=== PATIENT | male | born 1980 | race African-American/Black ===

== ENCOUNTER 2017-01-30 00:59 | Emergency (ER) | payer MEDICAID, OTHER ==
[~2017-01-30 00:59] MED LIST: Z.0.NO CURRENT MEDS
[2017-01-30 01:01] VITALS: BP 135/84; PULSE 65; RESP 16; TEMP 98.4; O2SAT 100
--- NOTE | 2017-01-30 02:17 | PD ---
HPI Chief Complaint: Injury Time Seen by Provider: 02:15 Travel History International Travel<30 days: No Contact w/Intl Traveler<30days: No Traveled to known affect area: No History of Present Illness HPI Patient comes in complaining of left lateral ankle pain ongoing for 4 days. Patient states began while after [place] with [place] playing around and doing flips. Patient denies any known direct trauma. Denies any radiation of the pain. Patient has been using [id number] ointments and analgesics minimal to no relief of his pain. Walking makes it worse. Denies any numbness or tingling. PFSH Past Medical History Asthma: Yes Blood Disorders: No Anxiety: No Depression: No Heart Rhythm Problems: No Cancer: No Cardiovascular Problems: No High Cholesterol: No Chemotherapy: No Chest Pain: No Congestive Heart Failure: No COPD: No Diabetes: No Diminished Hearing: No Endocrine: No Genitourinary: No Hypertension: No Immune Disorder: No Neurologic: No Psychiatric: No Reproductive: No Respiratory: No Myocardial Infarction: No Radiation Therapy: No Sleep Apnea: No Thyroid Disease: No Past Surgical History Surgical History: No Previous Surgery Other Surgery: No Social History Alcohol Use: Yes (OCC) Tobacco Use: Yes (2 CIGARS A DAY) Substance Use: No Allergies-Medications (Allergen,Severity, Reaction): Coded Allergies: No Known Allergies (Verified , 01/30/17) Reported Meds & Prescriptions Reported Meds & Active Scripts Active Naprosyn (Naproxen) 500 Mg Tab 500 Mg PO Q12HR PRN Review of Systems Except as stated in HPI: all other systems reviewed are Neg Physical Exam Narrative GENERAL: Well-developed, well nourished, in no acute distress, and non-ill appearing. SKIN: Focused skin assessment warm and dry. HEAD: Atraumatic. Normocephalic. EYES: Pupils equal and round. EOMI. No scleral icterus. No injection or drainage. ENT: No nasal bleeding or discharge. Mucous membranes pink and moist. NECK: Trachea midline. Supple. No nuclear rigidity. CARDIOVASCULAR: Dorsal pulses 2+, intact, and equal bilaterally. Capillary refill less than 2 seconds. RESPIRATORY: No accessory muscle use. No respiratory distress. MUSCULOSKELETAL: No obvious deformities. No clubbing. No cyanosis. No edema. Full range of motion. Ankle: Neagative anterior draw and Cartagena test. Negative Rayshawn's sign. No laxity noted with passive inversion and eversion of BL ankles. Negative squeeze test. Pulses equal BL distal to injury. Capillary refill less than 2 seconds distal to injury and equal BL. Sensation equal BL 1st web space. FROM of toes distal to injury and equal BL. NV intact distal to injury and equal BL. Dorsal pulses equal BL. Patient reports tenderness to palpation lateral aspect of left ankle. Normal gait. NEUROLOGICAL: Awake and alert. No obvious cranial nerve deficits. Motor grossly within normal limits. Normal speech. PSYCHIATRIC: Appropriate mood and affect; insight and judgment normal. Data Data Last Documented VS Vital Signs Date Time Temp Pulse Resp B/P Pulse Ox O2 Delivery O2 Flow Rate FiO2 01/30/17 01:01 98.4 65 16 135/84 100 Orders Ankle, Complete (Pet5ulk) (01/30/17 ) Ice/Cold Pack (01/30/17 02:15) Splint Or Brace Apply/Monitor (01/30/17 02:49) MDM Medical Decision Making Medical Screen Exam Complete: Yes Emergency Medical Condition: Yes Interpretation(s) Ankle x-ray read by the radiologist shows: 1. Diffuse soft tissue swelling over the lateral malleolus. 2. No acute fracture or joint dislocation. 3. Small heel spur. Differential Diagnosis Fracture, sprain, contusion, other Narrative Course There is no clinical evidence for fracture. There is no clinical evidence to suspect bony injury by exam. Radiographic examination revealed no fracture seen at this time. No obvious ligamental injury or internal derangement is noted at this time. The distal extremity appears neurovascularly intact, without evidence of neurovascular injury nor compartment syndrome. Tendon exam also was intact. The effected limb was splinted. The patient was discharged on pain medication along with sprain and splint care instructions and given warnings for vascular compromise. The patient is to follow up with Orthopedics and/or disposal man. The patient agrees with plan. Patient in no obvious distress upon re-evaluation. All pertinent Radiology result(s) discussed with patient. Patient was asked if they wanted to speak to my attending, which the patient did not wish to do at this time. Any questions/ concerns in reference to patient diagnosis/condition discussed and clarified prior to patient's discharge. Reinforced sheer importance of close follow up with patient's primary physician or primary care clinic, orthopedics, and/or disposal man. Instructed patient to return to ED immediately, if symptoms return/ worsen. Pt showed understanding of above instructions. Further instructions and recommendations were detailed in discharge paperwork. Pt ambulated without difficulty out of ED at discharge. Diagnosis Primary Impression: Left ankle sprain Qualified Code: S93.402A - Sprain of left ankle, unspecified ligament, initial encounter Additional Impression: Heel spur Qualified Code: M77.32 - Heel spur, left Patient Instructions: Ankle Sprain (ED), Ankle Sprain Exercises (GEN), Ankle Stirrup Splint (ED), General Instructions, Heel Spur (ED) Additional Instructions: Follow-up with your primary care physician and orthopedics and/or disposal man in 3-5 days for reevaluation. Take all medication as prescribed. Apply ice to affected area 20 minutes per hour as needed for pain. Return to the emergency department if symptoms get worse. Med/Other Pt SpecificInfo: Prescription(s) given Scripts Naproxen (Naprosyn)500 Mg [id number] Mg PO Q12HR PRN (PAIN SCALE 1 TO 10) #14 TAB Ref 0 Prov:Cha Valdez MD 01/30/17 Disposition: 01 DISCHARGE HOME Condition: Stable Francisco Denton Jan 30, 2017 02:17
--- NOTE | 2017-01-30 02:43 | RADRPT ---
EXAM DATE/TIME: 01/30/2017 02:25 [facility] COMPARISON: No previous studies available for comparison. INDICATIONS : Left ankle pain. MEDICAL HISTORY : None. SURGICAL HISTORY : None. ENCOUNTER: Initial ACUITY: 4 - 6 days PAIN SCORE: 5/10 LOCATION: Left ankle. FINDINGS: Three view exam was performed of the left ankle. The bony structures are in normal alignment. No ev idence of fracture, dislocation. There is soft tissue swelling overlying the lateral malleolus. The ankle mortise is intact. No radiopaque foreign bodies are seen. Bony mineralization is normal. Smal l heel spur CONCLUSION: 1. Diffuse soft tissue swelling over the lateral malleolus. 2. No acute fracture or joint dislocation. 3. Small heel spur. Indra Almeida MD on January 30, 2017 at 2:38 Board Certified Radiologist. This report was verified electronically.
[2017-01-30] MEDS ORDERED: NAPR500 PO (02:50)
== END 2017-01-30 03:44 | disposition home or self-care (01) ==
LOC: NEPD 00:59
DX: S93.402A Sprain of unspecified ligament of left ankle, initial encounter (principal); M77.52 Other enthesopathy of left foot and ankle; J45.909 Unspecified asthma, uncomplicated; F17.290 Nicotine dependence, other tobacco product, uncomplicated; Z79.899 Other long term (current) drug therapy; X58.XXXA Exposure to other specified factors, initial encounter
CPT/HCPCS: 73610; 99283; L1906